=== PATIENT | female | born 1965 | race Caucasian/White ===

== ENCOUNTER 2016-04-11 09:27 | Emergency (ER) | payer MEDICAID, OTHER ==
[2016-04-11 10:32] VITALS: BP 147/96
== END 2016-04-11 11:03 | disposition left against medical advice (07) ==
LOC: ED 09:27
DX: R10.31 Right lower quadrant pain (principal); Z53.21 Procedure and treatment not carried out due to patient leaving prior to being seen by health care provider

== ENCOUNTER 2016-04-11 13:52 | Emergency (ER) | payer OTHER ==
[2016-04-11 14:06] VITALS: BP 155/87
--- NOTE | 2016-04-11 14:31 | UC ---
Abdominal Pain Female HPI - HPI Summary HPI Summary: Patient has had 4 days of right side pain that is radiating to the right lower quad. She is nauseated and has loss of appetite, has had on and off fever. , cant move without pain, not comfortable sitting or lying down - History of Current Complaint Chief Complaint: UCGeneralIllness Stated Complaint: FLANK PAIN Time Seen by Provider: 04/11/16 14:17 Hx Obtained From: Patient ?: No Onset/Duration: Sudden Onset, Lasting Days Timing: Constant Severity Initially: Moderate Severity Currently: Severe Pain Intensity: 8 Pain Scale Used: 0-10 Numeric Location: Discrete At: RLQ Radiates: Yes Radiates to: Flank Character: Aching, Burning, Sharp Aggravating Factor(s): Movement, Deep Breaths, Other: - coughing Alleviating Factor(s): Nothing Associated Signs and Symptoms: Positive: Negative - Risk Factors Ectopic Risk Factor: Negative Ovarian Torsion Risk Factor: Negative Allergies/Adverse Reactions: Allergies Allergy/AdvReac Type Severity Reaction Status Date / Time No Known Allergies Allergy Verified 04/11/16 14:00 PMH/Surg Hx/FS Hx/Imm Hx Previously Healthy: Yes Endocrine History Of: Denies: Diabetes, Thyroid Disease Cardiovascular History Of: Denies: Cardiac Disorders, Hypertension, Pacemaker/ICD Respiratory History Of: Denies: COPD, Asthma GI/ History Of: Denies: Gastroesophageal Reflux, Renal Disease Neurological History Of: Denies: CVA, Dementia, Seizures Other History Of: Negative For: Anticoagulant Therapy - Surgical History Surgical History: Yes Surgery Procedure, Year, and Place: 2013-Bilat mastectomy; 9xlymph nodes removed in RIGHT. C-sections - Family History Known Family History: Positive: Hypertension - Social History Alcohol Use: Rare Substance Use Type: Marijuana Smoking Status (MU): Current Every Day Smoker Amount Used/How Often: 1/2 ppd - Immunization History Most Recent Influenza Vaccination: None Most Recent Tetanus Shot: Unk Review of Systems Constitutional: Fever, Chills Skin: Negative Eyes: Negative ENT: Negative Respiratory: Negative Cardiovascular: Negative Gastrointestinal: Abdominal Pain, Other - nausea Genitourinary: Negative Motor: Negative Neurovascular: Negative Musculoskeletal: Negative Neurological: Negative Psychological: Negative All Other Systems Reviewed And Are Negative: Yes Physical Exam Triage Information Reviewed: Yes Appearance: Well-Nourished, Ill-Appearing, Pain Distress Vital Signs: Initial Vital Signs Temp 98.5 F 02/27/17 14:00 Pulse 102 04/11/16 14:00 Resp 18 04/11/16 14:00 BP 155/87 04/11/16 14:00 Pulse Ox 100 04/11/16 14:00 Vital Signs Reviewed: Yes Eye Exam: Normal Eyes: Positive: Conjunctiva Clear ENT Exam: Normal ENT: Positive: Normal ENT inspection, Hearing grossly normal, Pharynx normal, TMs normal Dental Exam: Normal Neck exam: Normal Neck: Positive: Supple, Nontender, No Lymphadenopathy Respiratory Exam: Normal Respiratory: Positive: Chest non-tender, Lungs clear, Decreased breath sounds - hurts to take a deep breaths Cardiovascular Exam: Normal Cardiovascular: Positive: No Murmur, Pulses Normal, Tachycardia Abdominal Exam: Other - Right CVA tenderness, guarding, +obturator + rebound tendernesss, tender on right side Abdomen Description: Positive: Nontender, No Organomegaly, Soft Bowel Sounds: Positive: Hyperactive Musculoskeletal Exam: Normal Musculoskeletal: Positive: Strength Intact, ROM Intact, No Edema Neurological Exam: Normal Neurological: Positive: Alert, Muscle Tone Normal Psychological Exam: Normal Skin Exam: Normal Abd Pain Female Course/Dx - Course Course Of Treatment: hx obtained, exam performed, meds reviewed, abdominal exam indicative of acute abdomen, advised return to ER for further evaluation - Differential Dx/Diagnosis Differential Diagnosis: Abdominal Aortic Aneurysm, Appendicitis, Bowel Obstruction, Diverticulitis, Pelvic Inflammatory Disease, Urinary Tract Infection Provider Diagnoses: Abdominal Pain. flank pain. tachycardia - Physician Notification/Consults Discussed Patient Care With: Lola - provider in [facility] [place] ER Instructed by Provider To: MD Will See In ED Discharge - Discharge Plan Condition: Stable Disposition: AGAINST MEDICAL ADVICE
== END 2016-04-11 14:38 | disposition left against medical advice (07) ==
LOC: UCEAST 13:52
DX: R10.31 Right lower quadrant pain (principal); R00.0 Tachycardia, unspecified; F17.210 Nicotine dependence, cigarettes, uncomplicated
CPT/HCPCS: 81002; 87086; 99212; G0463

== ENCOUNTER 2016-04-11 15:07 | Emergency (ER) | payer OTHER ==
[2016-04-11] MEDS: NS 0.9% 1000 ML* 2,000 ML IV ONE (17:55)
--- NOTE | 2016-04-11 18:13 | RAD ---
Indication: RIGHT upper quadrant pain and tenderness for 4 days. History of breast cancer. Comparison: January 02, 2000 PET/CT. Technique: RIGHT upper quadrant ultrasound. Report: 24 cm cephalocaudal liver is heterogeneous in echotexture and remarkable for innumerable mildly hypoechoic lesions measuring up to 1.4 cm diameter suspicious for metastasis given history of breast carcinoma. Negative for biliary dilatation. 4 mm common bile duct. Adequately distended gallbladder with normal 2 mm wall is remarkable for a 3 mm mural based nodule without shadowing most suspicious for a polyp. Negative for pericholecystic fluid. Unremarkable visualized pancreas. Negative for ascites. Unremarkable 9.7 cm RIGHT kidney. IMPRESSION: 1. Hepatomegaly with multiple focal hepatic lesions suspicious for metastasis given history of breast carcinoma. The lesions are new compared with the January 01, 2013 PET/CT. Contrast-enhanced CT or MRI of the liver suggested for further assessment. 2. 3 mm probable cholesterol or inflammatory polyp. Gallbladder polyps 6mm or smaller have extremely low risk of malignancy and typically do not warrant follow up. On occasion polyps may actually represent small gallstones adherent to the gallbladder wall at surgery.
[2016-04-11 19:09] LABS: Hematocrit 38 % (35-47); Hemoglobin 12.2 g/dl (12.0-16.0); Mean Corpuscular HGB Conc 32 g/dl (31-36); Mean Corpuscular Hemoglobin 28 pg (27-31); Mean Corpuscular Volume 86 fL (80-97); Mean Platelet Volume 8 um3 (7.4-10.4); Red Blood Count 4.41 10^6/ul (4.0-5.4); Red Cell Distribution Width 16 % (10.5-15); White Blood Count 8.1 10^3/ul (3.5-10.8)
[2016-04-11 19:34] LABS: Urine Bilirubin Negative (Negative); Urine Glucose Negative (Negative); Urine Nitrite Negative (Negative)
[2016-04-11 19:40] LABS: C Reactive Protein 81.19 mg/L (< 5.00); Calcium 8.2 mg/dL (8.6-10.3); Potassium 3.5 mmol/L (3.5-5.0); Total Bilirubin 0.9 mg/dL (0.2-1.0); Total Protein 7.1 g/dL (6.4-8.9)
[2016-04-11 19:41] LABS: Troponin I 0.02 ng/mL (<0.04)
[2016-04-11 20:09] LABS: BUN/Creatinine Ratio 17.3 (8-20); EGFR African American 159.3 (>60); EGFR Non-African American 123.8 (>60); Globulin 4.1 g/dL (2-4)
[2016-04-11] MEDS ORDERED: Iohexol 300* (CONTRAST) 10 ML SDV IV ONE (20:11)
--- NOTE | 2016-04-11 21:06 | RAD ---
INDICATION: History of breast carcinoma with multiple hepatic lesions on RIGHT upper quadrant ultrasound of the same date. RIGHT upper quadrant pain. COMPARISON: RIGHT upper quadrant ultrasound of the same date and January 01, 2013 PET/CT. TECHNIQUE: Multidetector CT images were obtained from the lung bases to the ischial tuberosities with 77 mL Omnipaque 300 IV and oral contrast. Multiplanar reformation. REPORT: The visualized inferior thorax is negative for pulmonary nodules. 22 cm cephalocaudal liver is heterogeneous in density with innumerable focal hypodense lesions. In addition there is diffuse decreased density of the LEFT hepatic lobe compared with the RIGHT. There is absence of opacification of the LEFT portal vein concerning for LEFT portal vein thrombosis. Normal opacification of the main portal vein and RIGHT portal vein. The innumerable hypodense lesions in the RIGHT hepatic lobe measure up to 2 cm maximum dimension. Negative for portal venous gas. Normally distended gallbladder without gross CT abnormality. Nonspecific small volume of pericholecystic fluid. Unremarkable pancreas and spleen. No CT abnormality of the upper GI, small bowel, or retrocecal appendix. Enteric contrast extends to the rectum. Severe diverticulosis of the colon most marked at the sigmoid colon without findings of diverticulitis. Negative for ascites. Negative for free air or hernias. Symmetric nephrograms and pyelograms. No suspicious focal renal lesions or hydronephrosis. Unremarkable ureters and urinary bladder. Unremarkable anteverted uterus and adnexal regions. No enlarged retroperitoneal lymph nodes evident. There is increased density in the LEFT upper quadrant subphrenic fat concerning for potential metastatic implants. Mild calcific plaque of normal diameter, aorta and iliac arteries. Physiologic distention of the IVC. Negative for suspicious osseous lesions. IMPRESSION: 1. Hepatomegaly with innumerable focal hepatic lesions highly suspicious for metastatic disease given history of breast cancer. Nonetheless tissue sampling should be considered for confirmation. 2. Geographic demarcated decreased enhancement of the LEFT hepatic lobe concerning for LEFT portal vein thrombosis which may be the result of bland or tumor thrombus in this clinical setting. 3. There is increased density in the LEFT upper quadrant subphrenic fat concerning for potential metastatic implants. Results discussed with Dr. Hagen 04/11/2016 9:02 PM EST
[2016-04-11] MEDS ORDERED: Enoxaparin(*) 100 MG/ML SYR SUBCUT ONE (22:26)
[2016-04-12 00:08] VITALS: BP 134/91
--- NOTE | 2016-04-12 17:34 | ED ---
Adrienne Allison Claudia, scribed for Ryan Fitzpatrick MD on 04/11/16 at 1702 . Abdominal Pain/Female - HPI Summary HPI Summary: 50 year old female presents to the ED from [facility] with RLQ, RUQ abd pain. Pt notes sudden onset about 4 days ago however the Sx have been constant. Pt notes pain 2/10 whit no movement however the pain sharpens and becomes a 7/10 with any movement. Pt states loss of appetite, subjective fever, chills, nausea and vomiting. Pt denies blood in stool, tarry stool. She notes pain aggravated with movement including flexion of the trunk or extension of the leg. Pt notes PSHx of 3 Cesarian sections but her appendix and gallbladder are intact. - History of Current Complaint Chief Complaint: EDAbdPain Stated Complaint: ABD PAIN Time Seen by Provider: 04/11/16 16:54 Hx Obtained From: Patient Onset/Duration: Gradual Onset, Lasting Days, Still Present Timing: Constant Pain Intensity: 7 Pain Scale Used: 0-10 Numeric Location: Discrete At: RLQ Radiates: No Aggravating Factor(s): Movement - flexion of the trunk, and leg extension Alleviating Factor(s): Nothing Associated Signs and Symptoms: Positive: Decreased Appetite, Nausea, Vomiting. Negative: Blood in Stool Allergies/Adverse Reactions: Allergies Allergy/AdvReac Type Severity Reaction Status Date / Time No Known Allergies Allergy Verified 04/11/16 14:00 PMH/Surg Hx/FS Hx/Imm Hx Previously Healthy: Yes Endocrine/Hematology History: Denies: Hx Anticoagulant Therapy, Hx Diabetes, Hx Thyroid Disease Cardiovascular History: Denies: Hx Hypertension, Hx Pacemaker/ICD Respiratory History: Denies: Hx Asthma, Hx Chronic Obstructive Pulmonary Disease (COPD) History: Denies: Hx Renal Disease Neurological History: Denies: Hx Dementia, Hx Seizures Psychiatric History: Denies: Hx Substance Abuse - Cancer History Cancer Type, Location and Year: 12/25/12- RIGHT breast cancer Stage 3 - Surgical History Surgery Procedure, Year, and Place: 2012-Bilat mastectomy; 9xlymph nodes removed in RIGHT. C-sections Infectious Disease History: No Infectious Disease History: Denies: Hx Clostridium Difficile, Hx Hepatitis, Hx Human Immunodeficiency Virus (HIV), Hx Shingles, Hx Tuberculosis, Traveled Outside the [place] in Last 30 Days - Family History Known Family History: Positive: Hypertension - Social History Occupation: Employed Full-time Lives: With Family Alcohol Use: Rare Substance Use Type: Reports: Marijuana Hx Tobacco Use: Yes Smoking Status (MU): Current Every Day Smoker Amount Used/How Often: 1/2 ppd Review of Systems Positive: Fever, Chills Eyes: Negative ENT: Negative Cardiovascular: Negative Respiratory: Negative Positive: Abdominal Pain, Vomiting, Nausea Genitourinary: Negative Musculoskeletal: Negative Skin: Negative Neurological: Negative Psychological: Normal All Other Systems Reviewed And Are Negative: Yes Physical Exam Triage Information Reviewed: Yes Vital Signs On Initial Exam: Initial Vitals Temp Pulse Resp BP Pulse Ox 97.8 F 102 20 144/97 100 04/11/16 15:10 04/11/16 15:10 04/11/16 15:10 04/11/16 15:10 04/11/16 15:10 Vital Signs Reviewed: Yes Appearance: Positive: Well-Appearing, No Pain Distress Skin: Positive: Warm, Skin Color Reflects Adequate Perfusion, Dry Eyes: Positive: EOMI, MAGNO ENT: Positive: Normal ENT inspection Neck: Positive: Supple, Nontender Respiratory/Lung Sounds: Positive: Clear to Auscultation, Breath Sounds Present Cardiovascular: Positive: RRR Abdomen Description: Negative: Nontender - tender at RLQ AND RUQ Bowel Sounds: Positive: Present Musculoskeletal: Positive: Normal, Strength/ROM Intact Neurological: Positive: Normal, Sensory/Motor Intact, Alert, Oriented to Person Place, Time Psychiatric: Positive: Affect/Mood Appropriate Diagnostics - Vital Signs Vital Signs Temp Pulse Resp BP Pulse Ox 04/11/16 16:33 98.8 F 102 20 143/101 99 04/11/16 15:10 97.8 F 102 20 144/97 100 - Laboratory Lab Results: Lab Results 04/11/16 04/11/16 04/11/16 Range/Units 18:53 18:53 18:53 WBC 8.1 (3.5-10.8) 10^3/ul RBC 4.41 (4.0-5.4) 10^6/ul Hgb 12.2 (12.0-16.0) g/dl Hct 38 (35-47) % MCV 86 (80-97) fL MCH 28 (27-31) pg MCHC 32 (31-36) g/dl RDW 16 H (10.5-15) % Plt Count 210 (150-450) 10^3/ul MPV 8 (7.4-10.4) um3 Neut % (Auto) 75.0 (38-83) % Lymph % (Auto) 12.5 L (25-47) % [place] % (Auto) 11.3 H (1-9) % Eos % (Auto) 0.7 (0-6) % Baso % (Auto) 0.5 (0-2) % Absolute Neuts (auto) 6.1 (1.5-7.7) 10^3/ul Absolute Lymphs (auto) 1.0 (1.0-4.8) 10^3/ul Absolute Monos (auto) 0.9 H (0-0.8) 10^3/ul Absolute Eos (auto) 0.1 (0-0.6) 10^3/ul Absolute Basos (auto) 0 (0-0.2) 10^3/ul Absolute Nucleated RBC 0.01 10^3/ul Nucleated RBC % 0.1 INR (Anticoag Therapy) 1.23 H (0.89-1.11) APTT 44.6 H (26.0-36.3) seconds D-Dimer, Quantitative > 1050 H (Less Than 230) ng/mL Sodium 135 (133-145) mmol/L Potassium 3.5 (3.5-5.0) mmol/L Chloride 103 (101-111) mmol/L Carbon Dioxide 26 (22-32) mmol/L Anion Gap 6 (2-11) mmol/L BUN 9 (6-24) mg/dL Creatinine 0.52 (0.51-0.95) mg/dL Est GFR ( Amer) 159.3 (>60) Est GFR (Non-Af Amer) 123.8 (>60) BUN/Creatinine Ratio 17.3 (8-20) Glucose 70 (70-100) mg/dL Lactic Acid (0.5-2.0) mmol/L Calcium 8.2 L (8.6-10.3) mg/dL Total Bilirubin 0.90 (0.2-1.0) mg/dL AST 157 H (13-39) U/L ALT 104 H (7-52) U/L Alkaline Phosphatase 260 H (34-104) U/L Troponin I 0.02 (<0.04) ng/mL C-Reactive Protein 81.19 H (< 5.00) mg/L Total Protein 7.1 (6.4-8.9) g/dL Albumin 3.0 L (3.2-5.2) g/dL Globulin 4.1 H (2-4) g/dL Albumin/Globulin Ratio 0.7 L (1-3) Lipase 87 H (11.0-82.0) U/L Urine Color Urine Appearance Urine pH (5-9) Ur Specific [place] (1.010-1.030) Urine Protein (Negative) Urine Ketones (Negative) Urine Blood (Negative) Urine Nitrate (Negative) Urine Bilirubin (Negative) Urine Urobilinogen (Negative) Ur Leukocyte Esterase (Negative) Urine Glucose (Negative) 04/11/16 04/11/16 Range/Units 18:53 19:00 WBC (3.5-10.8) 10^3/ul RBC (4.0-5.4) 10^6/ul Hgb (12.0-16.0) g/dl Hct (35-47) % MCV (80-97) fL MCH (27-31) pg MCHC (31-36) g/dl RDW (10.5-15) % Plt Count (150-450) 10^3/ul MPV (7.4-10.4) um3 Neut % (Auto) (38-83) % Lymph % (Auto) (25-47) % [place]lan % (Auto) (1-9) % Eos % (Auto) (0-6) % Baso % (Auto) (0-2) % Absolute Neuts (auto) (1.5-7.7) 10^3/ul Absolute Lymphs (auto) (1.0-4.8) 10^3/ul Absolute Monos (auto) (0-0.8) 10^3/ul Absolute Eos (auto) (0-0.6) 10^3/ul Absolute Basos (auto) (0-0.2) 10^3/ul Absolute Nucleated RBC 10^3/ul Nucleated RBC % INR (Anticoag Therapy) (0.89-1.11) APTT (26.0-36.3) seconds D-Dimer, Quantitative (Less Than 230) ng/mL Sodium (133-145) mmol/L Potassium (3.5-5.0) mmol/L Chloride (101-111) mmol/L Carbon Dioxide (22-32) mmol/L Anion Gap (2-11) mmol/L BUN (6-24) mg/dL Creatinine (0.51-0.95) mg/dL Est GFR ( Amer) (>60) Est GFR (Non-Af Amer) (>60) BUN/Creatinine Ratio (8-20) Glucose (70-100) mg/dL Lactic Acid 1.4 (0.5-2.0) mmol/L Calcium (8.6-10.3) mg/dL Total Bilirubin (0.2-1.0) mg/dL AST (13-39) U/L ALT (7-52) U/L Alkaline Phosphatase (34-104) U/L Troponin I (<0.04) ng/mL C-Reactive Protein (< 5.00) mg/L Total Protein (6.4-8.9) g/dL Albumin (3.2-5.2) g/dL Globulin (2-4) g/dL Albumin/Globulin Ratio (1-3) Lipase (11.0-82.0) U/L Urine Color Straw Urine Appearance Clear Urine pH 7.0 (5-9) Ur Specific [place] 1.003 L (1.010-1.030) Urine Protein Negative (Negative) Urine Ketones Negative (Negative) Urine Blood Negative (Negative) Urine Nitrate Negative (Negative) Urine Bilirubin Negative (Negative) Urine Urobilinogen Negative (Negative) Ur Leukocyte Esterase Negative (Negative) Urine Glucose Negative (Negative) Result Diagrams: 04/11/16 18:53 04/11/16 18:53 Lab Statement: Any lab studies that have been ordered have been reviewed, and results considered in the medical decision making process. - CT ABD/PELVIS CT CT Interpretation: Positive (See Comments) - 1. Hepatomegaly with innumerable focal hepatic lesions highly suspicious for metastatic disease given history of breast cancer. Nonetheless tissue sampling should be considered for confirmation. 2. Geographic demarcated decreased enhancement of the LEFT hepatic lobe concerning for LEFT portal vein thrombosis which may be the result of bland or tumor thrombus in this clinical setting. 3. There is increased density in the LEFT upper quadrant subphrenic fat concerning for potential metastatic implants. CT Interpretation Completed By: Radiologist - Ultrasound No standard instances Ultrasound Interpretation: Positive (See Comments) - GALLBLADDER US: Hepatomegaly with multiple focal hepatic lesions suspicious for metastasis given hisotry of breast carcinoma. The lesions are new compared with the 2012 PET/CT. Contrast - enhanced CT or MRI of the liver suggested for further assessment. 2.3mm probable cholesterol or inflammatory polyp. Gallbladder polyps 6mm or smaller have extremely low risk of malignancy and typically do not warrant follow-up. on occassion polyps may actually represent small gallstones adherent to the gallbladder wall at surgery. Ultrasound Interpretation Completed By: Radiologist Re-Evaluation - Re-Evaluation 1 Re-Evaluation Time: 21:06 Comment: PT IS UPDATED WITH IMAGING RESULTS 2 Re-Evaluation Time: 21:37 Comment: Pt is updated with discussion with Oncology. 3 Re-Evaluation Time: 22:27 Comment: pt is agreeable with the plan to be d/c with follow-up appt with her oncologist. Abdominal Pain Fem Course/Dx - Course Course Of Treatment: DISCUSSED WITH DR EDUARDO. HE RECOMMENDED STARTING LOVENOX 1.5MG/KG PER DAY AND F/U WITH HER ONCOLOGIST (SHE HAS ONE AT [facility]). DISCHARGE HOME STABLE. - Diagnoses Provider Diagnoses: Abdominal pain, Portal vein thrombosis, Liver lesion - Provider Notifications Discussed Care Of Patient With: Hematology/oncology is paged [phone]. page is [phone] Dr. Delgado is discussed for patients further care. Dr. Delgado recommends Lovenox and f/u with smocker/oncologist. Discharge - Discharge Plan Condition: Stable Disposition: HOME Prescriptions: Enoxaparin(*) [Lovenox(*)] 90 mg SUBCUT Q24HR #7 syringe Additional Instructions: CALL TOMORROW TO FOLLOW UP WITH YOUR ONCOLOGIST. YOUR CT SHOWS POSSIBLE METASTATIC DISEASE IN YOUR LIVER AND LEFT PORTAL VEIN THROMBOSIS. YOUR LIVER ENZYMES ARE ELEVATED. YOU HAVE BEEN STARTED ON THE BLOOD THINNER LOVENOX 90MG ONCE A DAY. RETURN TO THE EMERGENCY DEPARTMENT FOR ANY WORSENING OF YOUR CONDITION OR QUESTIONS OR CONCERNS. The documentation as recorded by the Adrienne camargo Claudia accurately reflects the service I personally performed and the decisions made by me, Ryan Fitzpatrick MD.
== END 2016-04-12 00:10 | disposition home or self-care (01) ==
LOC: ED 15:07
DX: I81 Portal vein thrombosis (principal); K76.9 Liver disease, unspecified; R11.2 Nausea with vomiting, unspecified; R10.31 Right lower quadrant pain; F17.210 Nicotine dependence, cigarettes, uncomplicated; R50.9 Fever, unspecified
CPT/HCPCS: 36415; 74177; 76705; 80053; 81003; 83605; 83690; 84484; 85025; 85379; 85610; 85730; 86140; 96360; 99284; J1650; Q9967